=== PATIENT | male | born 1965 | race Two or more races ===

== ENCOUNTER 2017-02-08 10:02 | Emergency (ER) | payer MEDICAID ==
[~2017-02-08] VITALS: Ht 180.3 cm; Wt 61.0 kg
[2017-02-08] MEDS ORDERED: HYDROCODONE/ACETAMINOPHEN 5/325MG TABLET PO ONE (12:00)
[2017-02-08] MEDS ORDERED: ACETAMINOPHEN 325MG TABLET PO ONE (12:30)
[2017-02-08 14:23] VITALS: BP 122/73
== END 2017-02-08 14:25 | disposition home or self-care (01) ==
LOC: ER 10:58
DX: K64.4 Residual hemorrhoidal skin tags (principal); F12.10 Cannabis abuse, uncomplicated
CPT/HCPCS: 93005; 99283

== ENCOUNTER → 2019-06-25 | Emergency (ER) | payer MEDICAID ==
[~2019-06-25] VITALS: Ht 180.3 cm; Wt 67.0 kg
[~2019-06-25] MED LIST: ACETAMINOPHEN 650MG/20.3ML UDC PO ONE
[2019-06-25 09:57] VITALS: BP 130/85
== END | disposition home or self-care (01) ==
LOC: ER 05:51
DX: K40.90 Unilateral inguinal hernia, without obstruction or gangrene, not specified as recurrent (principal); N50.82 Scrotal pain; F12.10 Cannabis abuse, uncomplicated; F17.290 Nicotine dependence, other tobacco product, uncomplicated
CPT/HCPCS: 76870; 76872; 93976; 99284; 99406

== ENCOUNTER 2020-10-10 11:04 | Emergency (ER) | payer MEDICAID ==
[~2020-10-10] VITALS: Ht 170.2 cm; Wt 66.0 kg
[2020-10-10] MEDS ORDERED: HYDROCODONE/ACETAMINOPHEN 5/325MG TABLET PO ONE (12:00)
[2020-10-10] MEDS ORDERED: TETRACAINE 0.5% OPHTH DROPS 4ML LEFTEYE ONE (12:00)
[2020-10-10] MEDS ORDERED: FLUORESCEIN SODIUM 1MG/STRIP LEFTEYE ONE (12:00)
[2020-10-10] MEDS ORDERED: OFLO5DRO LEFTEYE (13:23)
[2020-10-10] MEDS ORDERED: AMOX-424 MT (13:23)
[2020-10-10] MEDS ORDERED: IBUP-2029 MT (13:23)
[2020-10-10 13:41] VITALS: BP 111/74
== END 2020-10-10 13:42 | disposition home or self-care (01) ==
LOC: ER 11:04
DX: S02.40DA Maxillary fracture, left side, initial encounter for closed fracture (principal); S06.9X0A Unspecified intracranial injury without loss of consciousness, initial encounter; F12.10 Cannabis abuse, uncomplicated; Y04.0XXA Assault by unarmed brawl or fight, initial encounter; Y93.89 Activity, other specified; Y92.89 Other specified places as the place of occurrence of the external cause; Y99.8 Other external cause status
CPT/HCPCS: 70486; 99285